=== PATIENT | male | born 1965 | race Caucasian/White ===

== ENCOUNTER 2020-03-25 18:04 | Emergency (ER) | payer MEDICAID ==
[~2020-03-25] VITALS: Ht 167.6 cm; Wt 77.3 kg
[2020-03-25 18:09] VITALS: BP 150/80
[2020-03-25] MEDS ORDERED: orphenadrine citrate 60mg/2ml inj. IM ONE (18:30)
[2020-03-25] MEDS ORDERED: ketorolac tromethamine 15mg/ml inj. IM ONE (18:30)
[2020-03-25] MEDS ORDERED: NAPR-56 PO (18:32)
[2020-03-25] MEDS ORDERED: METH-360 PO (18:32)
== END 2020-03-25 19:04 | disposition home or self-care (01) ==
LOC: ER 18:05 → EDBD 18:05 → ER 19:04
DX: G89.29 Other chronic pain (principal); M54.5 Low back pain; I25.2 Old myocardial infarction; Z86.19 Personal history of other infectious and parasitic diseases; Z72.89 Other problems related to lifestyle; Z88.5 Allergy status to narcotic agent; Z79.899 Other long term (current) drug therapy
CPT/HCPCS: 96372; 99284; J1885; J2360